=== PATIENT | male | born 1955 | race Caucasian/White ===

== ENCOUNTER 2022-01-02 14:20 | Emergency (ER) | payer MEDICARE, OTHER ==
[2022-01-02] MEDS ORDERED: Sodium Chloride 0.9% 1000 ML 1,000 ML IV STA (15:15)
--- NOTE | 2022-01-02 15:15 | ERPHSYRPT ---
- History of Present Illness Time Seen by Provider: 01/02/22 14:45 Patient Subjective Stated Complaint: PT states "I have diverticulitis and have had part of my colon removed and today I am having pain on both my lower right and lower left belly. I went to [facility] and the nurse practitioner told me I needed to come here." Triage Nursing Assessment: PT presented alert and oriented X3, skin pwd. pt ambulates with an upright steady gait, able to speak in clear full senences. pt resting comfortably on the bed. Physician History: This is a 66-year-old white male patient of Dr. Paz who was sent to us from urgent care clinic with the complaint of bilateral lower quadrant abdominal pain. Patient states that his symptoms began approximately 4 to 5 days ago and they have not completely resolved. He has a history of diverticulitis. He was diagnosed in 2012 and underwent a colectomy in 2012. His last colonoscopy was prior to 2012. Symptoms feel the same as it did when he had the episodes of diverticulitis in the past. He has not had any diarrhea. He currently has no nausea and there is minimal pain at this time but still present. He has a history of hypertension. Timing/Duration: day(s) (4 to 5 days) Activities at Onset: none Quality: aching, pressure Abdominal Pain Onset Location: RLQ, LLQ Pain Radiation: no radiation Severity of Pain-Max: moderate Severity of Pain-Current: mild Modifying Factors: Improves With: nothing (Moderate) Associated Symptoms: denies symptoms Previous symptoms: same symptoms as today (Approximate 10 years ago) Allergies/Adverse Reactions: No Known Drug Allergies Allergy (Verified 01/02/22 14:38) Home Medications: Atorvastatin Calcium 20 mg PO DAILY 01/02/22 [History] Montelukast Sodium 10 mg [Singulair 10 MG] 10 mg PO DAILY 01/02/22 [History] Pregabalin 50 mg PO DAILY 01/02/22 [History] Verapamil HCl [Verapamil ER] 180 mg PO DAILY 01/02/22 [History] Hx Tetanus, Diphtheria Vaccination/Date Given: No Hx Influenza Vaccination/Date Given: No Hx Pneumococcal Vaccination/Date Given: No Immunizations Up to Date: Yes Travel Risk - International Travel Have you traveled outside of the country in past 3 weeks: No - Coronavirus Screening Are you exhibiting any of the following symptoms?: No Close contact with a COVID-19 positive Pt in past 14-21 Days: No - Vaccine Status Have you recieved a Covid-19 vaccination: 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[employer] - Review of Systems Constitutional: No Symptoms Eyes: No Symptoms Ears, Nose, & Throat: No Symptoms Respiratory: No Symptoms Cardiac: No Symptoms Abdominal/Gastrointestinal: Abdominal Pain, Nausea, No Vomiting, No Diarrhea, No Constipation Genitourinary Symptoms: No Symptoms Musculoskeletal: No Symptoms Skin: No Symptoms Neurological: No Symptoms Psychological: No Symptoms Endocrine: No Symptoms Hematologic/Lymphatic: No Symptoms Immunological/Allergic: No Symptoms All Other Systems: Reviewed and Negative - Past Medical History Pertinent Past Medical History: Yes Neurological History: No Pertinent History Cardiac History: No Pertinent History Respiratory History: Other Endocrine Medical History: No Pertinent History Musculoskeletal History: Osteoarthritis Other Medical History: diverticulitis - Past Surgical History Past Surgical History: Yes Other Surgical History: colon removed. left shouler - Social History Smoking Status: Former smoker Exposure to second hand smoke: No Drug Use: none Patient Lives Alone: No - Nursing Vital Signs Nursing Vital Signs: Initial Vital Signs Temperature 97.3 F 01/02/22 14:33 Pulse Rate 65 01/02/22 14:33 Respiratory Rate 20 01/02/22 14:33 Blood Pressure 136/93 01/02/22 14:33 O2 Sat by Pulse Oximetry 97 01/02/22 14:33 Pain Scale Pain Intensity 2 - Physical Exam General Appearance: no apparent distress, alert, anxiety Eye Exam: PERRL/EOMI, eyes nml inspection Ears, Nose, Throat Exam: normal ENT inspection, moist mucous membranes Neck Exam: normal inspection, non-tender, supple, full range of motion Respiratory Exam: normal breath sounds, lungs clear, airway intact, No chest tenderness, No respiratory distress Cardiovascular Exam: regular rate/rhythm, normal heart sounds, normal peripheral pulses Gastrointestinal/Abdomen Exam: soft, normal bowel sounds, tenderness (Mild bilateral lower quadrant tenderness to palpation), guarding (Mild to palpation bilateral lower quadrants), No pulsatile mass, No rebound Rectal Exam: not done Back Exam: normal inspection, normal range of motion, No CVA tenderness, No vertebral tenderness Extremity Exam: normal inspection, normal range of motion, pelvis stable Neurologic Exam: alert, oriented x 3, cooperative, change management II-XII nml as tested, normal mood/affect, nml cerebellar function, nml station & gait, sensation nml Skin Exam: normal color, warm, dry Lymphatic Exam: No adenopathy SpO2 Interpretation: normal SpO2: 97 O2 Delivery: Room Air - Course Nursing assessment & vital signs reviewed: Yes EKG Interpreted by Me: RATE (64), Sinus Rhythm, NORMAL AXIS, NORMAL INTERVALS, NORMAL QRS, NORMAL ST-T, Other (No acute ischemic changes) Ordered Tests: Active Orders 24 hr Category Date Time Status IV Insertion STAT Care 01/02/22 15:15 Active ABDOMEN AND PELVIS W/0 CONTRAS [CT] Stat Exams 01/02/22 15:15 Completed AMYLASE Stat Lab 01/02/22 15:15 Completed CBC W DIFF Stat Lab 01/02/22 15:15 Completed CMP Stat Lab 01/02/22 15:15 Completed LIPASE Stat Lab 01/02/22 15:15 Completed Lactic Acid Stat Lab 01/02/22 15:20 Completed UA W/RFX CULTURE Stat Lab 01/02/22 16:16 Completed Medication Summary Discontinued Medications Generic Name Dose Route Start Last Admin Trade Name Chikis PRN Reason Stop Dose Admin Sodium Chloride 1,000 mls @ 999 mls/hr 01/02/22 15:15 01/02/22 17:03 Sodium Chloride 0.9% 1000 Ml IV 01/02/22 16:15 Infused .Q1H1M STA Infusion Sodium Chloride Confirm 01/02/22 15:55 Sodium Chloride 0.9% 1000 Ml Administered 01/02/22 15:56 Dose 1,000 mls @ ud .ROUTE .STK-MED ONE Lab/Rad Data: Laboratory Result Diagrams 01/02/22 15:15 01/02/22 15:15 Laboratory Results 01/02/22 01/02/22 01/02/22 Range/Units 16:16 15:20 15:15 WBC (4.0-10.5) x10^3/uL RBC (4.1-5.6) x10^6/uL Hgb (12.5-18.0) g/dL Hct (42-50) % MCV (78-100) fL MCH (26-32) pg MCHC (32-36) g/dL RDW (11.5-14.0) % Plt Count (150-450) x10^3/uL MPV (7.5-11.0) fL Gran % (36.0-66.0) % Immature Gran % (Auto) (0.00-0.4) % Nucleat RBC Rel Count (0.00-0.1) % Eos # (Auto) (0-0.5) x10^3/uL Immature Gran # (Auto) (0.00-0.03) x10^3u/L Absolute Lymphs (auto) (1.0-4.6) x10^3/uL Absolute Monos (auto) (0.0-1.3) x10^3/uL Absolute Nucleated RBC (0.00-0.01) x10^3u/L Lymphocytes % (24.0-44.0) % Monocytes % (0.0-12.0) % Eosinophils % (0.00-5.0) % Basophils % (0.0-0.4) % Absolute Granulocytes (1.4-6.9) x10^3/uL Basophils # (0-0.4) x10^3/uL Sodium 138 (137-145) mmol/L Potassium 4.2 (3.5-5.1) mmol/L Chloride 104 (98-107) mmol/L Carbon Dioxide 26 (22-30) mmol/L Anion Gap 11.7 (5-15) MEQ/L BUN 12 (9-20) mg/dL Creatinine 0.80 (0.66-1.25) mg/dL Estimated GFR > 60.0 ML/MIN Glucose 93 (74-106) mg/dL Lactic Acid 1.0 (0.4-2.0) Calcium 9.2 (8.4-10.2) mg/dL Total Bilirubin 0.70 (0.2-1.3) mg/dL AST 37 (17-59) U/L ALT 43 (0-50) U/L Alkaline Phosphatase 136 H (38-126) U/L Serum Total Protein 6.9 (6.3-8.2) g/dL Albumin 4.1 (3.5-5.0) g/dL Amylase 78 (30-110) U/L Lipase 89 (23-300) U/L Urinalys Dipstick Clnc MAIN LAB Urine Color YELLOW (YELLOW) Urine Appearance CLEAR (CLEAR) Urine pH 5.5 (5-6) Ur Specific [place] 1.015 (1.005-1.025) POC Urine Protein Conf NEGATIVE (Negative) Urine Ketones NEGATIVE (NEGATIVE) Urine Nitrite NEGATIVE (NEGATIVE) Urine Bilirubin NEGATIVE (NEGATIVE) Urine Urobilinogen 0.2 (0-1) mg/dL Urine Leukocytes NEGATIVE (NEGATIVE) Urine WBC (Auto) NONE (0-5) /HPF Urine RBC (Auto) NONE (0-2) /HPF U Epithel Cells (Auto) NONE (FEW) /HPF Urine Bacteria (Auto) NONE (NEGATIVE) /HPF Urine RBC NEGATIVE (0-5) Clark/ul Urine Mucus (Auto) SLIGHT (NEGATIVE) /HPF Ur Culture Indicated? NO Urine Glucose NEGATIVE (NEGATIVE) mg/dL 01/02/22 Range/Units 15:15 WBC 7.8 (4.0-10.5) x10^3/uL RBC 5.00 (4.1-5.6) x10^6/uL Hgb 14.7 (12.5-18.0) g/dL Hct 45.1 (42-50) % MCV 90.2 (78-100) fL MCH 29.4 (26-32) pg MCHC 32.6 (32-36) g/dL RDW 13.9 (11.5-14.0) % Plt Count 260 (150-450) x10^3/uL MPV 9.0 (7.5-11.0) fL Gran % 53.0 (36.0-66.0) % Immature Gran % (Auto) 0.3 (0.00-0.4) % Nucleat RBC Rel Count 0.0 (0.00-0.1) % Eos # (Auto) 0.31 (0-0.5) x10^3/uL Immature Gran # (Auto) 0.02 (0.00-0.03) x10^3u/L Absolute Lymphs (auto) 2.40 (1.0-4.6) x10^3/uL Absolute Monos (auto) 0.87 (0.0-1.3) x10^3/uL Absolute Nucleated RBC 0.00 (0.00-0.01) x10^3u/L Lymphocytes % 30.7 (24.0-44.0) % Monocytes % 11.1 (0.0-12.0) % Eosinophils % 4.0 (0.00-5.0) % Basophils % 0.9 (0.0-0.4) % Absolute Granulocytes 4.15 (1.4-6.9) x10^3/uL Basophils # 0.07 (0-0.4) x10^3/uL Sodium (137-145) mmol/L Potassium (3.5-5.1) mmol/L Chloride (98-107) mmol/L Carbon Dioxide (22-30) mmol/L Anion Gap (5-15) MEQ/L BUN (9-20) mg/dL Creatinine (0.66-1.25) mg/dL Estimated GFR ML/MIN Glucose (74-106) mg/dL Lactic Acid (0.4-2.0) Calcium (8.4-10.2) mg/dL Total Bilirubin (0.2-1.3) mg/dL AST (17-59) U/L ALT (0-50) U/L Alkaline Phosphatase (38-126) U/L Serum Total Protein (6.3-8.2) g/dL Albumin (3.5-5.0) g/dL Amylase (30-110) U/L Lipase (23-300) U/L Urinalys Dipstick Clnc Urine Color (YELLOW) Urine Appearance (CLEAR) Urine pH (5-6) Ur Specific [place] (1.005-1.025) POC Urine Protein Conf (Negative) Urine Ketones (NEGATIVE) Urine Nitrite (NEGATIVE) Urine Bilirubin (NEGATIVE) Urine Urobilinogen (0-1) mg/dL Urine Leukocytes (NEGATIVE) Urine WBC (Auto) (0-5) /HPF Urine RBC (Auto) (0-2) /HPF U Epithel Cells (Auto) (FEW) /HPF Urine Bacteria (Auto) (NEGATIVE) /HPF Urine RBC (0-5) Clark/ul Urine Mucus (Auto) (NEGATIVE) /HPF Ur Culture Indicated? Urine Glucose (NEGATIVE) mg/dL - Progress Progress: unchanged, re-examined Progress Note: 01/02/22 17:18 CAT scan of the abdomen pelvis without contrast shows left-sided diverticulosis without diverticulitis. There is no evidence of appendicitis. There is no evidence of abdominal aortic aneurysm. There is no free air present. There are no acute intra-abdominal or intra pelvic findings/processes Counseled pt/family regarding: lab results, diagnosis, need for follow-up, rad results - Departure Departure Disposition: Home Clinical Impression: Abdominal pain Condition: Stable Critical Care Time: No Referrals: BHARTI PAZ MD [Primary Care Provider] - Follow up/PCP as directed Additional Instructions: Drink plenty of fluids. Follow-up with your primary care doctor and possibly your general surgeon if symptoms persist. Take all your medications as prescribed.
[2022-01-02 15:26] LABS: Absolute Neutrophil Ct (ANC) 4.15 x10^3/uL (1.4-6.9); Basophil (Absolute #) 0.07 x10^3/uL (0-0.4); Eosinophil (Absolute #) 0.31 x10^3/uL (0-0.5); Hematocrit 45.1 % (42-50); Hemoglobin 14.7 g/dL (12.5-18.0); Lymphocytes % 30.7 % (24.0-44.0); Mean Cell Volume 90.2 fL (78-100); Mean Corpuscular Hemoglobin 29.4 pg (26-32); Mean Corpuscular Hgb Concent. 32.6 g/dL (32-36); Monocyte (Absolute #) 0.87 x10^3/uL (0.0-1.3); Monocytes % 11.1 % (0.0-12.0); Platelet Count 260 x10^3/uL (150-450); Red Cell Distribution Width 13.9 % (11.5-14.0); White Blood Count 7.8 x10^3/uL (4.0-10.5)
[2022-01-02 15:32] LABS: ALBUMIN 4.1 g/dL (3.5-5.0); ALKALINE PHOSPHATASE 136 U/L (38-126); AMYLASE 78 U/L (30-110); ANION GAP 11.7 MEQ/L (5-15); BLOOD UREA NITROGEN 12 mg/dL (9-20); CHLORIDE 104 mmol/L (98-107); Calcium 9.2 mg/dL (8.4-10.2); Carbon Dioxide 26 mmol/L (22-30); EST GLOMERULAR FILTRATION RATE > 60.0 ML/MIN; Glucose 93 mg/dL (74-106); LIPASE 89 U/L (23-300); Potassium 4.2 mmol/L (3.5-5.1); SGOT/AST 37 U/L (17-59); SGPT/ALT 43 U/L (0-50); SODIUM 138 mmol/L (137-145); Total Protein 6.9 g/dL (6.3-8.2)
[2022-01-02] MEDS ORDERED: Sodium Chloride 0.9% 1000 ML 1,000 ML ONE (15:55)
[2022-01-02 17:04] LABS: Appearance CLEAR (CLEAR); Bilirubin NEGATIVE (NEGATIVE); Dipstick done @ ? MAIN LAB; Glucose NEGATIVE (NEGATIVE); Ketones NEGATIVE (NEGATIVE); Nitrite NEGATIVE (NEGATIVE); Ph 5.5 (5-6); Protein,Urine Dip NEGATIVE (Negative); RBC NEGATIVE Ery/ul (0-5); Specific Gravity 1.015 (1.005-1.025); Urobilinogen 0.2 mg/dL (0-1)
[2022-01-02 17:05] LABS: Mucus SLIGHT /HPF (NEGATIVE)
[2022-01-02 17:06] LABS: Urine Cultured Indicated? NO
--- NOTE | 2022-01-02 17:09 | XRAY ---
Exam: CT of the abdomen and pelvis without IV contrast from 01/02/2022. CTDI: 10.55 mGy Comparison: CT of the abdomen without and with IV contrast and CT of the pelvis with IV contrast, both from 03/18/2011. Indication: 66-year-old male with bilateral lower quadrant abdominal pain 5 days associated with nausea and diarrhea; the patient is status post partial left colectomy in 2012 due to diverticulitis. He is also status post cholecystectomy. Technique: Non-IV contrast axial images were obtained through the abdomen and pelvis. Reconstructed coronal and sagittal images were created and reviewed. No oral contrast was given. Findings: The visualized lung bases appear clear. The heart size is normal. There is a mild retrocardiac hiatal hernia which is perhaps slightly more prominent as compared to 03/18/2011. The liver appears of normal size. On axial image #22, there is an oval-shaped low attenuation lesion measuring 2.2 cm x 1.3 cm in cross section within the posterior aspect of the right hepatic lobe. This measures + 0.65 Hounsfield units suggesting a hepatic cyst. This appears to be mildly increased in size as compared to 03/18/2011. In addition, there is an oval-shaped 1.5 cm in diameter low-attenuation lesion adjacent to the anterior margin of the inferior tip of the right hepatic lobe on axial image #32 measuring +2.4 Hounsfield units. I believe this represents a second small hepatic cyst. This latter cyst is not definitely seen on the prior study from 03/18/2011. The remainder of the liver appears essentially unremarkable on this non-IV contrast study. Surgical clips consistent with prior cholecystectomy are seen within the right upper quadrant. No intrahepatic biliary duct distention is seen. The spleen is of normal size and reveals no focal mass. The pancreas appears unremarkable. Incidentally, there appears to be a small air-filled diverticulum near the junction of the descending and transverse duodenum. The adrenal glands appear normal size and configuration. The kidneys reveal no gross mass, renal calculi, or hydronephrosis. No definite ureterolith is seen. No abdominal aortic aneurysm or abnormal retroperitoneal lymphadenopathy is seen. There is abundant intraperitoneal fat. There is no free intraperitoneal air or bowel containing ventral hernia. I do note minimal protrusion of intraperitoneal fat into the subcutaneous fat at the level the umbilicus on midline sagittal image #123. I again see evidence of partial left-sided colectomy with re-anastomosis in the left lower quadrant with suture material. Some residual left-sided colon diverticulosis is seen without evidence of acute diverticulitis. I see no findings to suggest appendicitis within the right lower quadrant. The urinary bladder is distended and appears unremarkable. The seminal vesicles appear symmetric. The prostate gland is of unremarkable size and contains minimal calcification within it. No other pelvic mass or abnormal pelvic lymphadenopathy is seen. There is no free intraperitoneal fluid. The skeleton reveals no acute fracture or aggressive bone lesion. I believe there is a small bone infarct within the right femoral neck which is unchanged. There is partial lumbarization of the upper aspect of the sacrum on the right on coronal images #117 and #118. This represents a developmental/congenital finding. Impression: 1. I see evidence of interval partial left colectomy with reanastomosis in the left lower quadrant. Some r the. This widest the reason either acquisitions yet with DVT gas within esidual left-sided colonic diverticulosis without evidence of diverticulitis is seen. I see no bowel obstruction. 2. There are no findings to suggest appendicitis within the right lower quadrant. 3. Status post cholecystectomy, small hiatal hernia, small duodenal diverticulum, and a couple small apparent cysts within the posterior and inferior aspects of the right hepatic lobe are seen. 4. No other acute process is seen within the abdomen or pelvis.
[2022-01-02 17:20] VITALS: O2SAT 97
[2022-01-02 17:37] VITALS: BP 120/80; PULSE 53
== END 2022-01-02 17:35 | disposition home or self-care (01) ==
LOC: ED 14:20
DX: R10.31 Right lower quadrant pain (principal); R10.32 Left lower quadrant pain; I10 Essential (primary) hypertension; Z79.899 Other long term (current) drug therapy
CPT/HCPCS: 36000; 36415; 74176; 80053; 81015; 82150; 83605; 83690; 85025; 96360; 96361; 99284

== ENCOUNTER 2023-05-03 04:19 | Emergency (ER) | payer MEDICARE, OTHER ==
[2023-05-03] MEDS ORDERED: SODIUM BICARBONATE 50 MEQ/50 ML ABBOJECT IV ONE (04:25)
--- NOTE | 2023-05-03 04:43 | ERPHSYRPT ---
- History of Present Illness Time Seen by Provider: 05/03/23 04:19 Source: family, EMS Exam Limitations: clinical condition Physician History: The patient arrives in cardiac arrest. The patient had been found by his after he collapsed. She thought maybe had a seizure. EMS was called to the scene. CPR was started by the and then by police. EMS arrived. The patient has been worked almost an hour before arriving. He had been shocked 10 x 3 epinephrine to be given. A temporary airway had been placed. The patient arrives in asystole and CPR in progress. In addition to the 3 epinephrine 300 mg of amiodarone have been given. Aspirin Treatment Today: unknown Allergies/Adverse Reactions: No Known Drug Allergies Allergy (Verified 05/03/23 06:15) Home Medications: Atorvastatin Calcium 20 mg PO HS 01/02/22 [History] Montelukast Sodium 10 mg [Singulair 10 MG] 10 mg PO DAILY 01/02/22 [History] Verapamil HCl [Verapamil ER] 180 mg PO DAILY 01/02/22 [History] Omeprazole 40 mg PO DAILY 05/03/23 [History] Tiotropium [place] Inhaler [Spiriva 18 Mcg/Cap Inhaler] 1 puff IH DAILY 05/03/23 [History] Tiotropium [place] [Spiriva Handihaler] 1 inh IH DAILY 05/03/23 [History] Hx Tetanus, Diphtheria Vaccination/Date Given: No Hx Influenza Vaccination/Date Given: No Hx Pneumococcal Vaccination/Date Given: No Travel Risk - Vaccine Status Have you recieved a Covid-19 vaccination: 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 left shouler - Social History Smoking Status: Former smoker Exposure to second hand smoke: No Drug Use: none Patient Lives Alone: No - Nursing Vital Signs Nursing Vital Signs: Pain Scale Pain Intensity 0 - Physical Exam General Appearance: other (CPR in progress patient is intubated with a temporary airway) Eye Exam: other (Fixed and dilated) Ears, Nose, Throat Exam: normal ENT inspection, other (Temporary airway i gel) Neck Exam: normal inspection Respiratory Exam: other (Bilateral breath sounds with assisted ventilation) Cardiovascular Exam: other (Asystole on the monitor no heart sounds) Gastrointestinal/Abdomen Exam: soft Male Genitalia Exam: normal genitalia Extremity Exam: normal inspection Neurologic Exam: other (GCS of 3) Skin Exam: normal color, warm, dry SpO2 Interpretation: airway management int. O2 Delivery: Ambu-Bag Procedures - Intubation Time of Intubation: 04:25 Intubation Indications: cardiac arrest Intubation Method: orotracheal, glidescope Tube Size (cm): 8.0 C-Spine: maintained Endotracheal Tube Confirmation: bilateral breath sounds, positive end tidal CO2, good rise & fall of chest Intubation Complications: no complications Performed By: ED Physician Post Intubation Xray: No Progress/X-ray Impression: 05/03/23 04:43 The patient was intubated using a glide scope. This was done on the first attempt. I visualized the endotracheal tube going to between the cords. Bilateral breath sounds missed at the tube. Good chest wall movement. - Additional Procedures Additional Procedures: CPR (CPR and ACLS protocol were performed. Please refer to code sheet.) - Course Nursing assessment & vital signs reviewed: Yes Ordered Tests: Active Orders 24 hr Category Date Time Status Intubate Patient STAT RT 05/03/23 05:10 Completed Medication Summary Discontinued Medications Generic Name Dose Route Start Last Admin Trade Name Chikis PRN Reason Stop Dose Admin Sodium Bicarbonate Confirm 05/03/23 04:25 Sodium Bicarbonate 1 Meq/Ml 50ml Syringe Administered 05/03/23 04:26 Dose 50 meq IV .STMotility Count-Pathful ONE - Progress Progress Note: 05/03/23 04:44 The patient arrives in cardiac arrest. The patient was intubated and CPR peripherals performed. ACLS protocol was utilized The patient was given additional 4 mg of epinephrine. We also gave an amp of bicarb. We never regained a pulse. Multiple pulse checks were asystole. Once again the patient had been coded approximately over an hour in total. The patient on upon arrival was asystole. We never regained a pulse or rhythm. I did go and speak to the to update her that the prognosis was poor. We continued the code. After the fourth epinephrine and around the CPR the final pulse check showed no pulse as well as asystole on the monitor. The code was called Time of 432 - Departure Departure Disposition: Clinical Impression: Cardiac arrest, VF (ventricular fibrillation), Coronary artery disease Condition: Critical Care Time: No Referrals: BHARTI PAZ MD [Primary Care Provider] - Follow up/PCP as directed
== END 2023-05-03 07:53 | disposition expired ==
LOC: ED 04:19
DX: I25.10 Atherosclerotic heart disease of native coronary artery without angina pectoris (principal); I46.2 Cardiac arrest due to underlying cardiac condition; I49.01 Ventricular fibrillation
CPT/HCPCS: 99285